=== PATIENT | male | born 1940 ===

== ENCOUNTER 2022-02-10 21:47 | Inpatient (IN) ==
[2022-02-10] MEDS ORDERED: SILVER SULFADIAZINE 1% CREAM 25 GM TUBE TOP STA (22:15)
[2022-02-10] MEDS ORDERED: SODIUM CHLORIDE 0.9% 1,000 ML IV STA (22:16)
[2022-02-10] MEDS ORDERED: ONDANSETRON 4 MG/2 ML VIAL IV STA (22:16)
[2022-02-10] MEDS ORDERED: SILVER SULFADIAZINE 1% CREAM 25 GM TUBE TOP ONE (22:18)
[2022-02-10 23:32] LABS: Basophils % 0.1 % (0.0-0.8); Hematocrit 43.2 VOL% (42.0-52.0); Hemoglobin 15.2 GM/DL (14.0-18.0); Immature Granulocytes % 0.9 %; Immature Granulocytes Absolute 0.12 #; Lymphocytes % 7.3 % (21.2-54.2); Mean Corpuscular HGB Conc 35.2 GM/DL (32-36); Mean Corpuscular Volume 102.4 FL (87-102); Mean Platelet Volume 10.1 FL (9.6-12.0); Monocytes % 7.4 % (1.7-12.7); Neutrophils % 84.3 % (38.7-73.9); Platelet Count 137 T/CUMM (130-400); Red Blood Count 4.22 MC/CUMM (3.8-5.5); Red Cell Distribution Width 14.1 % (9.3-17.3); White Blood Count 13.9 T/CUMM (4-12)
[2022-02-10 23:46] LABS: INR 1.1; PT Patient Result 12.5 SECS (10.5-12.0)
[2022-02-11] MEDS ORDERED: SODIUM CHLORIDE 0.9% 1,000 ML IV STA (00:02)
[2022-02-11 00:05] LABS: Alanine Aminotransferase 155 U/L (16-61); Albumin 2.9 G/DL (3.4-5.0); Alkaline Phosphatase 90 U/L (45-117); Aspartate Amino Transferase 337 U/L (0-37); Blood Urea Nitrogen 30 MG/DL (7-18); CKMB % 0.6 %; Calcium 8.6 MG/DL (8.5-10.1); Carbon Dioxide 26 MMOL/L (21-32); Estimated Glom Filtration Rate 107 ML/MIN; Glucose 188 MG/DL (74-106); Potassium 3.7 MMOL/L (3.5-5.1); Sodium 143 MMOL/L (136-145); Total Protein 6.7 G/DL (6.4-8.2)
[2022-02-11 00:34] LABS: Bacteria,Urine Occasional /HPF (Few); Mucus,Urine Few /LPF (Occasional); RBC,Urine 1 /HPF (0-4)
[2022-02-11 00:35] LABS: Bilirubin,Urine Small mg/dL (Negative); Blood, Urine Large mg/dL (Negative); Glucose,Urine (UA) Negative (Negative); Ketones,Urine 15 mg/dL (Negative); Nitrite,Urine Negative (Negative); Protein,Urine 100 mg/dL (Negative); Urine Appearance Clear (Clear); Urine Color Yellow (Yellow); Urine Specific Gravity >= 1.030 (1.001-1.035); Urine pH 5.5 (4.5-8.0)
[2022-02-11] MEDS ORDERED: ACETAMINOPHEN 325 MG TABLET PO PRN (01:40)
[2022-02-11] MEDS ORDERED: SIMETHICONE CHEW 125 MG TABLET PO PRN (01:40)
[2022-02-11] MEDS ORDERED: ONDANSETRON 4 MG/2 ML VIAL IV PRN (01:40)
[2022-02-11] MEDS ORDERED: GLUCAGON 1 MG VIAL IM PRN (01:40)
[2022-02-11] MEDS ORDERED: DEXTROSE 10% 250 ML BAG IV PRN (01:53)
[2022-02-11] MEDS: SODIUM CHLORIDE 0.45% 1,000 ML IV SCH ×3 (03:30→19:10)
[2022-02-11 03:37] LABS: Basophils % 0.1 % (0.0-0.8); Eosinophils % 0.1 % (0.00-10.9); Hematocrit 38.5 VOL% (42.0-52.0); Hemoglobin 13.3 GM/DL (14.0-18.0); Immature Granulocytes % 0.7 %; Immature Granulocytes Absolute 0.09 #; Lymphocytes # 1.3 10*3/uL (1.4-4.0); Lymphocytes % 10.6 % (21.2-54.2); Mean Corpuscular HGB Conc 34.5 GM/DL (32-36); Mean Corpuscular Volume 101.9 FL (87-102); Mean Platelet Volume 10.2 FL (9.6-12.0); Monocytes % 8.1 % (1.7-12.7); Neutrophils % 80.4 % (38.7-73.9); Platelet Count 120 T/CUMM (130-400); Red Blood Count 3.78 MC/CUMM (3.8-5.5); Red Cell Distribution Width 13.9 % (9.3-17.3); White Blood Count 12.6 T/CUMM (4-12)
[2022-02-11 04:14] LABS: Albumin 2.7 G/DL (3.4-5.0); Bilirubin,Total 1.6 MG/DL (0.20-1.00); CKMB % 0.6 %; Calcium 8.5 MG/DL (8.5-10.1); High Sensitive Troponin I* 44.3 ng/L (0-78); Potassium 3.3 MMOL/L (3.5-5.1); Risk Ratio 4.87; Thyroid Stimulating Hormone 1.01 uIU/ml (0.358-3.74); Total Protein 6.5 G/DL (6.4-8.2); VLDL Cholesterol 24.8 MG/DL
[2022-02-11] MEDS ORDERED: POTASSIUM CHLORIDE RIDER 10 MEQ/100 ML PREMIX IV PRN (06:30)
[2022-02-11] MEDS ORDERED: MAGNESIUM SULF RIDER 2 GM/50 ML PREMIX IV PRN (06:30)
[2022-02-11] MEDS ORDERED: MAGNESIUM SULF RIDER 4 GM/100 ML PREMIX IV PRN (06:30)
[2022-02-11] MEDS: POTASSIUM CHLORIDE 20 MEQ TABLET PO PRN ×3 (07:19→11:48)
[2022-02-11] MEDS: INSULIN REGULAR 100 UNIT/ML SUBCUT SCH ×4 (07:20→20:15)
[2022-02-11] MEDS: ALBUTEROL 2.5 MG/3 ML NEB RESP TX SCH ×3 (07:40→20:00)
[2022-02-11] MEDS: DOCUSATE SODIUM 100 MG CAPSULE PO SCH ×2 (09:49→20:15)
[2022-02-11] MEDS: ENOXAPARIN 40 MG/0.4 ML SYRINGE SUBCUT SCH (09:49)
[2022-02-11] MEDS: PANTOPRAZOLE 40 MG TABLET PO SCH (09:50)
[2022-02-11] MEDS: ASCORBIC ACID 500 MG TABLET PO SCH (20:15)
[2022-02-12] MEDS: ALBUTEROL 2.5 MG/3 ML NEB RESP TX SCH ×4 (00:57→19:37)
[2022-02-12] MEDS: SODIUM CHLORIDE 0.45% 1,000 ML IV SCH ×3 (03:30→17:16)
[2022-02-12] MEDS ORDERED: PHENOL 1.4% THROAT SPRAY 177 ML BOTTLE PO PRN (03:40)
[2022-02-12 06:07] LABS: Basophils % 0.5 % (0.0-0.8); Eosinophils # 0.2 10*3/uL (0.0-0.87); Eosinophils % 2.3 % (0.00-10.9); Hematocrit 38.3 VOL% (42.0-52.0); Hemoglobin 13.3 GM/DL (14.0-18.0); Immature Granulocytes % 0.7 %; Immature Granulocytes Absolute 0.06 #; Lymphocytes # 1.4 10*3/uL (1.4-4.0); Lymphocytes % 17.5 % (21.2-54.2); Mean Corpuscular HGB Conc 34.7 GM/DL (32-36); Mean Corpuscular Volume 102.4 FL (87-102); Mean Platelet Volume 10.9 FL (9.6-12.0); Monocytes % 8.5 % (1.7-12.7); Neutrophils % 70.5 % (38.7-73.9); Platelet Count 126 T/CUMM (130-400); Red Blood Count 3.74 MC/CUMM (3.8-5.5); Red Cell Distribution Width 14.3 % (9.3-17.3); White Blood Count 8.2 T/CUMM (4-12)
[2022-02-12 06:38] LABS: Albumin 2.3 G/DL (3.4-5.0); Bilirubin,Total 1.2 MG/DL (0.20-1.00); CKMB % 0.7 %; Calcium 8.4 MG/DL (8.5-10.1); Osmolality,Calculated 286.3 MOS/KG (273-304); Potassium 3.5 MMOL/L (3.5-5.1); Total Protein 6.3 G/DL (6.4-8.2)
[2022-02-12] MEDS: PANTOPRAZOLE 40 MG TABLET PO SCH (08:48)
[2022-02-12] MEDS: ASCORBIC ACID 500 MG TABLET PO SCH ×2 (08:48→22:36)
[2022-02-12] MEDS: DOCUSATE SODIUM 100 MG CAPSULE PO SCH ×2 (08:48→22:43)
[2022-02-12] MEDS: ENOXAPARIN 40 MG/0.4 ML SYRINGE SUBCUT SCH (08:49)
[2022-02-12] MEDS: INSULIN REGULAR 100 UNIT/ML SUBCUT SCH ×4 (08:50→21:58)
[2022-02-12] MEDS: NON-FORMULARY MEDICATION (Omega-3 Fatty Acids-Vitamin E 1,000 mg Capsule) PO SCH (09:02)
[2022-02-12] MEDS: ZALEPLON 5 MG CAPSULE PO PRN (22:36)
[2022-02-13] MEDS: ALBUTEROL 2.5 MG/3 ML NEB RESP TX SCH ×4 (00:05→19:30)
[2022-02-13] MEDS: SODIUM CHLORIDE 0.45% 1,000 ML IV SCH ×3 (04:24→22:22)
[2022-02-13 05:40] LABS: Basophils % 0.5 % (0.0-0.8); Eosinophils # 0.4 10*3/uL (0.0-0.87); Eosinophils % 5.3 % (0.00-10.9); Hematocrit 37.9 VOL% (42.0-52.0); Hemoglobin 12.8 GM/DL (14.0-18.0); Immature Granulocytes % 1.3 %; Lymphocytes # 1.4 10*3/uL (1.4-4.0); Lymphocytes % 18.7 % (21.2-54.2); Mean Corpuscular HGB Conc 33.8 GM/DL (32-36); Mean Corpuscular Volume 102.7 FL (87-102); Monocytes % 9.7 % (1.7-12.7); Neutrophils % 64.5 % (38.7-73.9); Platelet Count 128 T/CUMM (130-400); Red Blood Count 3.69 MC/CUMM (3.8-5.5); Red Cell Distribution Width 14.2 % (9.3-17.3); White Blood Count 7.5 T/CUMM (4-12)
[2022-02-13 06:13] LABS: Albumin 2.2 G/DL (3.4-5.0); CKMB % 0.6 %; Calcium 8.4 MG/DL (8.5-10.1); Osmolality,Calculated 283.4 MOS/KG (273-304); Potassium 3.8 MMOL/L (3.5-5.1); Total Protein 6.1 G/DL (6.4-8.2)
[2022-02-13] MEDS: INSULIN REGULAR 100 UNIT/ML SUBCUT SCH ×4 (08:21→20:36)
[2022-02-13] MEDS: ASCORBIC ACID 500 MG TABLET PO SCH ×2 (09:33→20:33)
[2022-02-13] MEDS: DOCUSATE SODIUM 100 MG CAPSULE PO SCH ×2 (09:33→20:33)
[2022-02-13] MEDS: PANTOPRAZOLE 40 MG TABLET PO SCH (09:33)
[2022-02-13] MEDS: ENOXAPARIN 40 MG/0.4 ML SYRINGE SUBCUT SCH (09:34)
[2022-02-13] MEDS: NON-FORMULARY MEDICATION (Omega-3 Fatty Acids-Vitamin E 1,000 mg Capsule) PO SCH (09:53)
[2022-02-13] MEDS: ZALEPLON 5 MG CAPSULE PO PRN (20:34)
[2022-02-14] MEDS: ALBUTEROL 2.5 MG/3 ML NEB RESP TX SCH ×4 (01:11→19:11)
[2022-02-14] MEDS: SODIUM CHLORIDE 0.45% 1,000 ML IV SCH ×2 (03:21→12:44)
[2022-02-14 05:23] LABS: Basophils % 0.6 % (0.0-0.8); Eosinophils # 0.5 10*3/uL (0.0-0.87); Eosinophils % 6.6 % (0.00-10.9); Hematocrit 38.7 VOL% (42.0-52.0); Immature Granulocytes % 2.1 %; Immature Granulocytes Absolute 0.15 #; Lymphocytes # 1.4 10*3/uL (1.4-4.0); Lymphocytes % 20.3 % (21.2-54.2); Mean Corpuscular HGB Conc 33.6 GM/DL (32-36); Mean Corpuscular Volume 103.5 FL (87-102); Mean Platelet Volume 10.2 FL (9.6-12.0); Monocytes % 9.7 % (1.7-12.7); Neutrophils % 60.7 % (38.7-73.9); Platelet Count 131 T/CUMM (130-400); Red Blood Count 3.74 MC/CUMM (3.8-5.5); Red Cell Distribution Width 14.3 % (9.3-17.3)
[2022-02-14 05:47] LABS: Bilirubin,Total 1.2 MG/DL (0.20-1.00); CKMB % 1.1 %; Calcium 8.2 MG/DL (8.5-10.1); Osmolality,Calculated 277.5 MOS/KG (273-304); Potassium 4.3 MMOL/L (3.5-5.1); Total Protein 5.9 G/DL (6.4-8.2)
[2022-02-14] MEDS: INSULIN REGULAR 100 UNIT/ML SUBCUT SCH ×4 (08:03→21:00)
[2022-02-14] MEDS: PANTOPRAZOLE 40 MG TABLET PO SCH (09:04)
[2022-02-14] MEDS: ASCORBIC ACID 500 MG TABLET PO SCH ×2 (09:05→20:59)
[2022-02-14] MEDS: ENOXAPARIN 40 MG/0.4 ML SYRINGE SUBCUT SCH (09:05)
[2022-02-14] MEDS: NON-FORMULARY MEDICATION (Omega-3 Fatty Acids-Vitamin E 1,000 mg Capsule) PO SCH (09:05)
[2022-02-14] MEDS: DOCUSATE SODIUM 100 MG CAPSULE PO SCH ×2 (09:05→20:59)
[2022-02-15] MEDS: ALBUTEROL 2.5 MG/3 ML NEB RESP TX SCH ×4 (00:24→20:23)
[2022-02-15] MEDS: SODIUM CHLORIDE 0.45% 1,000 ML IV SCH ×2 (01:56→03:44)
[2022-02-15 05:14] LABS: Basophils % 0.5 % (0.0-0.8); Eosinophils # 0.4 10*3/uL (0.0-0.87); Eosinophils % 6.2 % (0.00-10.9); Hematocrit 37.9 VOL% (42.0-52.0); Hemoglobin 12.8 GM/DL (14.0-18.0); Immature Granulocytes % 1.8 %; Immature Granulocytes Absolute 0.11 #; Lymphocytes # 1.1 10*3/uL (1.4-4.0); Lymphocytes % 17.7 % (21.2-54.2); Mean Corpuscular HGB Conc 33.8 GM/DL (32-36); Mean Corpuscular Volume 103.8 FL (87-102); Mean Platelet Volume 10.1 FL (9.6-12.0); Monocytes % 11.2 % (1.7-12.7); Neutrophils % 62.6 % (38.7-73.9); Platelet Count 136 T/CUMM (130-400); Red Blood Count 3.65 MC/CUMM (3.8-5.5); Red Cell Distribution Width 13.9 % (9.3-17.3); White Blood Count 6.3 T/CUMM (4-12)
[2022-02-15 05:34] LABS: Albumin 2.1 G/DL (3.4-5.0); Bilirubin,Total 0.8 MG/DL (0.20-1.00); CKMB % 1.6 %; Calcium 8.4 MG/DL (8.5-10.1); Osmolality,Calculated 276.7 MOS/KG (273-304); Potassium 3.6 MMOL/L (3.5-5.1); Total Protein 6.2 G/DL (6.4-8.2)
[2022-02-15] MEDS: INSULIN REGULAR 100 UNIT/ML SUBCUT SCH ×4 (08:33→21:14)
[2022-02-15] MEDS: DOCUSATE SODIUM 100 MG CAPSULE PO SCH ×2 (10:46→22:49)
[2022-02-15] MEDS: NON-FORMULARY MEDICATION (Omega-3 Fatty Acids-Vitamin E 1,000 mg Capsule) PO SCH (10:47)
[2022-02-15] MEDS: ASCORBIC ACID 500 MG TABLET PO SCH ×2 (10:47→21:13)
[2022-02-15] MEDS: ENOXAPARIN 40 MG/0.4 ML SYRINGE SUBCUT SCH (10:47)
[2022-02-15] MEDS: PANTOPRAZOLE 40 MG TABLET PO SCH (10:47)
[2022-02-15] MEDS ORDERED: DOXYCYCLINE HYCLATE 100 MG CAPSULE PO SCH (21:00)
[2022-02-15] MEDS: ZALEPLON 5 MG CAPSULE PO PRN (21:13)
[2022-02-16] MEDS: ALBUTEROL 2.5 MG/3 ML NEB RESP TX SCH ×4 (01:06→19:15)
[2022-02-16 05:07] LABS: Basophils % 0.6 % (0.0-0.8); Eosinophils # 0.4 10*3/uL (0.0-0.87); Eosinophils % 6.5 % (0.00-10.9); Hematocrit 39.7 VOL% (42.0-52.0); Hemoglobin 13.5 GM/DL (14.0-18.0); Immature Granulocytes Absolute 0.07 #; Lymphocytes # 1.4 10*3/uL (1.4-4.0); Lymphocytes % 20.4 % (21.2-54.2); Mean Corpuscular Volume 102.3 FL (87-102); Mean Platelet Volume 9.6 FL (9.6-12.0); Monocytes % 10.8 % (1.7-12.7); Neutrophils % 60.7 % (38.7-73.9); Platelet Count 145 T/CUMM (130-400); Red Blood Count 3.88 MC/CUMM (3.8-5.5); Red Cell Distribution Width 13.9 % (9.3-17.3); White Blood Count 6.8 T/CUMM (4-12)
[2022-02-16 05:40] LABS: Albumin 2.2 G/DL (3.4-5.0); CKMB % 1.9 %; Calcium 8.6 MG/DL (8.5-10.1); Osmolality,Calculated 278.4 MOS/KG (273-304); Potassium 4.1 MMOL/L (3.5-5.1); Total Protein 6.2 G/DL (6.4-8.2)
[2022-02-16] MEDS: INSULIN REGULAR 100 UNIT/ML SUBCUT SCH ×4 (08:07→22:20)
[2022-02-16] MEDS: NON-FORMULARY MEDICATION (Omega-3 Fatty Acids-Vitamin E 1,000 mg Capsule) PO SCH (09:04)
[2022-02-16] MEDS: DOXYCYCLINE HYCLATE 100 MG CAPSULE PO SCH ×2 (09:14→22:19)
[2022-02-16] MEDS: ENOXAPARIN 40 MG/0.4 ML SYRINGE SUBCUT SCH (09:14)
[2022-02-16] MEDS: DOCUSATE SODIUM 100 MG CAPSULE PO SCH ×2 (09:14→22:19)
[2022-02-16] MEDS: PANTOPRAZOLE 40 MG TABLET PO SCH (09:14)
[2022-02-16] MEDS: ASCORBIC ACID 500 MG TABLET PO SCH ×2 (09:14→22:19)
[2022-02-16] MEDS: POLYETHYLENE GLYCOL POWDER 17 GM PACK PO SCH (09:14)
[2022-02-16] MEDS ORDERED: TUBERCULIN SKIN TEST 0.1 ML SYRINGE INTRADERM ONE (18:00)
[2022-02-16] MEDS: ZALEPLON 5 MG CAPSULE PO PRN (22:19)
[2022-02-17] MEDS: ALBUTEROL 2.5 MG/3 ML NEB RESP TX SCH ×4 (00:09→19:46)
[2022-02-17 05:16] LABS: Basophils % 0.5 % (0.0-0.8); Eosinophils # 0.4 10*3/uL (0.0-0.87); Eosinophils % 6.9 % (0.00-10.9); Hematocrit 38.1 VOL% (42.0-52.0); Hemoglobin 13.1 GM/DL (14.0-18.0); Immature Granulocytes % 0.7 %; Immature Granulocytes Absolute 0.04 #; Lymphocytes # 1.1 10*3/uL (1.4-4.0); Lymphocytes % 20.5 % (21.2-54.2); Mean Corpuscular HGB Conc 34.4 GM/DL (32-36); Mean Corpuscular Volume 102.4 FL (87-102); Mean Platelet Volume 9.6 FL (9.6-12.0); Monocytes % 10.4 % (1.7-12.7); Platelet Count 142 T/CUMM (130-400); Red Blood Count 3.72 MC/CUMM (3.8-5.5); Red Cell Distribution Width 13.8 % (9.3-17.3); White Blood Count 5.5 T/CUMM (4-12)
[2022-02-17 05:38] LABS: Albumin 2.1 G/DL (3.4-5.0); Bilirubin,Total 0.8 MG/DL (0.20-1.00); CKMB % 2.5 %; Calcium 8.5 MG/DL (8.5-10.1); Osmolality,Calculated 276.7 MOS/KG (273-304); Potassium 3.4 MMOL/L (3.5-5.1); Total Protein 6.2 G/DL (6.4-8.2)
[2022-02-17] MEDS: NON-FORMULARY MEDICATION (Omega-3 Fatty Acids-Vitamin E 1,000 mg Capsule) PO SCH (09:12)
[2022-02-17] MEDS: DOCUSATE SODIUM 100 MG CAPSULE PO SCH ×2 (09:30→22:12)
[2022-02-17] MEDS: PANTOPRAZOLE 40 MG TABLET PO SCH (09:30)
[2022-02-17] MEDS: POTASSIUM CHLORIDE 20 MEQ TABLET PO PRN (09:30)
[2022-02-17] MEDS: ASCORBIC ACID 500 MG TABLET PO SCH ×2 (09:30→22:12)
[2022-02-17] MEDS: DOXYCYCLINE HYCLATE 100 MG CAPSULE PO SCH ×2 (09:30→22:12)
[2022-02-17] MEDS: ENOXAPARIN 40 MG/0.4 ML SYRINGE SUBCUT SCH (09:31)
[2022-02-17] MEDS: INSULIN REGULAR 100 UNIT/ML SUBCUT SCH ×4 (09:31→22:14)
[2022-02-17] MEDS: POLYETHYLENE GLYCOL POWDER 17 GM PACK PO SCH (09:31)
[2022-02-17] MEDS ORDERED: TUBERCULIN SKIN TEST 0.1 ML SYRINGE INTRADERM ONE (11:30)
[2022-02-17] MEDS: ZALEPLON 5 MG CAPSULE PO PRN (22:13)
[2022-02-18] MEDS: ALBUTEROL 2.5 MG/3 ML NEB RESP TX SCH ×4 (00:26→19:27)
[2022-02-18] MEDS: ASCORBIC ACID 500 MG TABLET PO SCH (08:50)
[2022-02-18] MEDS: PANTOPRAZOLE 40 MG TABLET PO SCH (08:50)
[2022-02-18] MEDS: ENOXAPARIN 40 MG/0.4 ML SYRINGE SUBCUT SCH (08:50)
[2022-02-18] MEDS: DOCUSATE SODIUM 100 MG CAPSULE PO SCH (08:50)
[2022-02-18] MEDS: POLYETHYLENE GLYCOL POWDER 17 GM PACK PO SCH (08:50)
[2022-02-18] MEDS ORDERED: ANTI ITCH TOP PRN (09:06)
[2022-02-18] MEDS ORDERED: NYSTATIN CREAM 15 GM TUBE TOP SCH (11:00)
[2022-02-18] MEDS: INSULIN REGULAR 100 UNIT/ML SUBCUT SCH ×3 (17:10→17:39)
[2022-02-18] MEDS: NON-FORMULARY MEDICATION (Omega-3 Fatty Acids-Vitamin E 1,000 mg Capsule) PO SCH (17:40)
[2022-02-18 22:26] VITALS: BP 137/54
[2022-02-19] MEDS ORDERED: OMEGA 3 ACID ETHYL ESTERS 1 GM CAPSULE PO SCH (09:00)
== END 2022-02-18 20:32 | disposition swing bed (61) | DRG 565 ==
LOC: N.ED 21:47 → N.EDINP 02-11 02:45 → SUATTDRO 02-11 02:45 → N.EDINP 02-11 15:01 → N.TELEN 02-11 15:08
PROVIDERS: ADMIT Family Medicine; ATTEND Internal Medicine

== ENCOUNTER 2022-08-30 13:21 | Inpatient (IN) ==
[2022-08-30 15:11] LABS: Basophils % 0.4 % (0.0-0.8); Eosinophils # 0.1 10*3/uL (0.0-0.87); Eosinophils % 2.8 % (0.00-10.9); Hemoglobin 13.1 GM/DL (14.0-18.0); Immature Granulocytes % 0.4 %; Immature Granulocytes Absolute 0.02 #; Lymphocytes % 19.2 % (21.2-54.2); Mean Corpuscular HGB Conc 33.6 GM/DL (32-36); Mean Corpuscular Volume 98.7 FL (87-102); Mean Platelet Volume 9.1 FL (9.6-12.0); Monocytes # 0.6 10*3/uL (0.11-0.8); Monocytes % 12.3 % (1.7-12.7); Neutrophils % 64.9 % (38.7-73.9); Platelet Count 190 T/CUMM (130-400); Red Blood Count 3.95 MC/CUMM (3.8-5.5); Red Cell Distribution Width 15.7 % (9.3-17.3)
[2022-08-30 15:29] LABS: Albumin 2.6 G/DL (3.4-5.0); Bilirubin,Total 0.9 MG/DL (0.20-1.00); Calcium 8.6 MG/DL (8.5-10.1); Osmolality,Calculated 277.7 MOS/KG (273-304); Potassium 4.2 MMOL/L (3.5-5.1); Total Protein 7.6 G/DL (6.4-8.2)
[2022-08-30] MEDS ORDERED: ONDANSETRON 4 MG/2 ML VIAL IV PRN (16:49)
[2022-08-30 17:41] LABS: INR 1.1; PT Patient Result 11.8 SECS (10.1-12.1); Partial Thromboplastin Time 45.8 SECS (23.7-32.9)
[2022-08-30] MEDS ORDERED: HEPARIN DRIP 25,000 UNITS/500 ML PREMIX IV SCH (18:00)
[2022-08-30] MEDS ORDERED: ENOXAPARIN 40 MG/0.4 ML SYRINGE SUBCUT SCH (18:00)
[2022-08-30] MEDS: LACTULOSE 20 GM/30 ML UDCUP PO SCH ×2 (19:12→22:49)
[2022-08-30] MEDS: FUROSEMIDE 40 MG/4 ML VIAL IV SCH (19:13)
[2022-08-30 19:53] LABS: INR 1.1; PT Patient Result 12.4 SECS (10.1-12.1); Partial Thromboplastin Time 47.6 SECS (23.7-32.9)
[2022-08-30] MEDS ORDERED: GABAPENTIN 100 MG CAPSULE PO SCH (21:00)
[2022-08-30] MEDS: MELATONIN 3 MG TABLET PO PRN (22:49)
[2022-08-30] MEDS: GABAPENTIN 300 MG CAPSULE PO SCH (22:49)
[2022-08-30] MEDS: traMADol 50 MG TABLET PO PRN (22:49)
[2022-08-31 05:24] LABS: Basophils % 0.4 % (0.0-0.8); Eosinophils # 0.2 10*3/uL (0.0-0.87); Eosinophils % 4.2 % (0.00-10.9); Hematocrit 33.6 VOL% (42.0-52.0); Hemoglobin 11.4 GM/DL (14.0-18.0); Immature Granulocytes % 0.2 %; Immature Granulocytes Absolute 0.01 #; Lymphocytes # 1.1 10*3/uL (1.4-4.0); Lymphocytes % 24.1 % (21.2-54.2); Mean Corpuscular HGB Conc 33.9 GM/DL (32-36); Mean Corpuscular Volume 97.7 FL (87-102); Mean Platelet Volume 9.3 FL (9.6-12.0); Monocytes # 0.5 10*3/uL (0.11-0.8); Monocytes % 11.6 % (1.7-12.7); Neutrophils % 59.5 % (38.7-73.9); Platelet Count 154 T/CUMM (130-400); Red Blood Count 3.44 MC/CUMM (3.8-5.5); Red Cell Distribution Width 15.6 % (9.3-17.3); White Blood Count 4.5 T/CUMM (4-12)
[2022-08-31 05:47] LABS: Albumin 2.1 G/DL (3.4-5.0); Bilirubin,Total 0.8 MG/DL (0.20-1.00); Calcium 8.6 MG/DL (8.5-10.1); Osmolality,Calculated 273.8 MOS/KG (273-304); Total Protein 6.2 G/DL (6.4-8.2)
[2022-08-31] MEDS: LACTULOSE 20 GM/30 ML UDCUP PO SCH ×4 (05:57→22:28)
[2022-08-31] MEDS ORDERED: CHOLECALCIFEROL 1,000 UNIT TABLET PO SCH (09:00)
[2022-08-31] MEDS ORDERED: FUROSEMIDE 40 MG TABLET PO SCH (09:00)
[2022-08-31] MEDS: FERROUS SULFATE 325 MG TABLET PO SCH ×2 (09:24→20:34)
[2022-08-31] MEDS: PANTOPRAZOLE 40 MG TABLET PO SCH (09:24)
[2022-08-31] MEDS: SPIRONOLACTONE 100 MG TABLET PO SCH (09:24)
[2022-08-31] MEDS: FUROSEMIDE 40 MG/4 ML VIAL IV SCH ×2 (09:26→15:59)
[2022-08-31] MEDS: AMOXICILLIN/CLAV 875 MG TABLET PO SCH (20:34)
[2022-08-31] MEDS: traMADol 50 MG TABLET PO PRN (20:34)
[2022-08-31] MEDS: GABAPENTIN 300 MG CAPSULE PO SCH (20:34)
[2022-08-31] MEDS: MELATONIN 3 MG TABLET PO PRN (20:34)
[2022-09-01 05:03] LABS: Basophils % 0.4 % (0.0-0.8); Eosinophils # 0.2 10*3/uL (0.0-0.87); Eosinophils % 4.7 % (0.00-10.9); Hematocrit 37.3 VOL% (42.0-52.0); Hemoglobin 12.7 GM/DL (14.0-18.0); Immature Granulocytes % 0.4 %; Immature Granulocytes Absolute 0.02 #; Lymphocytes # 1.1 10*3/uL (1.4-4.0); Lymphocytes % 22.9 % (21.2-54.2); Mean Corpuscular Volume 98.7 FL (87-102); Mean Platelet Volume 9.3 FL (9.6-12.0); Monocytes # 0.5 10*3/uL (0.11-0.8); Monocytes % 11.1 % (1.7-12.7); Neutrophils % 60.5 % (38.7-73.9); Platelet Count 163 T/CUMM (130-400); Red Blood Count 3.78 MC/CUMM (3.8-5.5); Red Cell Distribution Width 15.5 % (9.3-17.3); White Blood Count 4.7 T/CUMM (4-12)
[2022-09-01 05:27] LABS: Albumin 2.3 G/DL (3.4-5.0); Bilirubin,Total 1.3 MG/DL (0.20-1.00); Calcium 8.8 MG/DL (8.5-10.1); Potassium 3.7 MMOL/L (3.5-5.1); Total Protein 6.8 G/DL (6.4-8.2)
[2022-09-01] MEDS: LACTULOSE 20 GM/30 ML UDCUP PO SCH ×4 (05:55→23:22)
[2022-09-01] MEDS: FUROSEMIDE 40 MG/4 ML VIAL IV SCH ×2 (08:58→17:13)
[2022-09-01] MEDS: AMOXICILLIN/CLAV 875 MG TABLET PO SCH ×2 (09:01→20:46)
[2022-09-01] MEDS: CYANOCOBALAMIN 500 MCG TABLET PO SCH (09:02)
[2022-09-01] MEDS: FERROUS SULFATE 325 MG TABLET PO SCH ×2 (09:02→20:46)
[2022-09-01] MEDS: SPIRONOLACTONE 100 MG TABLET PO SCH (09:02)
[2022-09-01] MEDS: THIAMINE 100 MG TABLET PO SCH (09:02)
[2022-09-01] MEDS: CHOLECALCIFEROL 1,000 UNIT TABLET PO SCH (09:02)
[2022-09-01] MEDS: PANTOPRAZOLE 40 MG TABLET PO SCH (09:02)
[2022-09-01] MEDS: ASCORBIC ACID 500 MG TABLET PO SCH (09:02)
[2022-09-01] MEDS: MELATONIN 3 MG TABLET PO PRN (20:46)
[2022-09-01] MEDS: GABAPENTIN 300 MG CAPSULE PO SCH (20:46)
[2022-09-01] MEDS: traMADol 50 MG TABLET PO PRN (20:46)
[2022-09-02 05:20] LABS: Basophils % 0.6 % (0.0-0.8); Eosinophils # 0.2 10*3/uL (0.0-0.87); Hematocrit 34.6 VOL% (42.0-52.0); Hemoglobin 11.8 GM/DL (14.0-18.0); Immature Granulocytes % 0.4 %; Immature Granulocytes Absolute 0.02 #; Lymphocytes % 21.3 % (21.2-54.2); Mean Corpuscular HGB Conc 34.1 GM/DL (32-36); Mean Corpuscular Volume 98.9 FL (87-102); Mean Platelet Volume 9.1 FL (9.6-12.0); Monocytes # 0.6 10*3/uL (0.11-0.8); Monocytes % 12.7 % (1.7-12.7); Platelet Count 163 T/CUMM (130-400); Red Cell Distribution Width 15.4 % (9.3-17.3); White Blood Count 4.7 T/CUMM (4-12)
[2022-09-02 05:47] LABS: Calcium 8.5 MG/DL (8.5-10.1); Potassium 3.9 MMOL/L (3.5-5.1)
[2022-09-02] MEDS: LACTULOSE 20 GM/30 ML UDCUP PO SCH ×5 (06:24→23:45)
[2022-09-02] MEDS: FERROUS SULFATE 325 MG TABLET PO SCH ×3 (07:07→21:15)
[2022-09-02] MEDS: THIAMINE 100 MG TABLET PO SCH ×2 (07:08→10:32)
[2022-09-02] MEDS: SPIRONOLACTONE 100 MG TABLET PO SCH (10:32)
[2022-09-02] MEDS: AMOXICILLIN/CLAV 875 MG TABLET PO SCH ×2 (10:32→21:15)
[2022-09-02] MEDS: FUROSEMIDE 40 MG/4 ML VIAL IV SCH (10:32)
[2022-09-02] MEDS: CYANOCOBALAMIN 500 MCG TABLET PO SCH (10:33)
[2022-09-02] MEDS: ASCORBIC ACID 500 MG TABLET PO SCH (10:33)
[2022-09-02] MEDS: PANTOPRAZOLE 40 MG TABLET PO SCH (10:33)
[2022-09-02] MEDS: CHOLECALCIFEROL 1,000 UNIT TABLET PO SCH (10:33)
[2022-09-02] MEDS: FUROSEMIDE 40 MG TABLET PO SCH (16:27)
[2022-09-02] MEDS: MELATONIN 3 MG TABLET PO PRN (21:15)
[2022-09-02] MEDS: GABAPENTIN 300 MG CAPSULE PO SCH (21:15)
[2022-09-03 05:15] LABS: Basophils % 0.4 % (0.0-0.8); Eosinophils # 0.1 10*3/uL (0.0-0.87); Eosinophils % 3.1 % (0.00-10.9); Hematocrit 36.2 VOL% (42.0-52.0); Hemoglobin 12.1 GM/DL (14.0-18.0); Immature Granulocytes % 0.7 %; Immature Granulocytes Absolute 0.03 #; Lymphocytes # 0.9 10*3/uL (1.4-4.0); Lymphocytes % 19.8 % (21.2-54.2); Mean Corpuscular HGB Conc 33.4 GM/DL (32-36); Mean Corpuscular Volume 97.3 FL (87-102); Mean Platelet Volume 9.4 FL (9.6-12.0); Monocytes # 0.6 10*3/uL (0.11-0.8); Monocytes % 13.3 % (1.7-12.7); Neutrophils % 62.7 % (38.7-73.9); Platelet Count 172 T/CUMM (130-400); Red Blood Count 3.72 MC/CUMM (3.8-5.5); Red Cell Distribution Width 15.1 % (9.3-17.3); White Blood Count 4.5 T/CUMM (4-12)
[2022-09-03 05:34] LABS: Calcium 8.6 MG/DL (8.5-10.1); Osmolality,Calculated 272.8 MOS/KG (273-304); Potassium 3.8 MMOL/L (3.5-5.1)
[2022-09-03] MEDS: LACTULOSE 20 GM/30 ML UDCUP PO SCH (05:50)
[2022-09-03] MEDS: AMOXICILLIN/CLAV 875 MG TABLET PO SCH (12:07)
[2022-09-03] MEDS: CHOLECALCIFEROL 1,000 UNIT TABLET PO SCH (12:07)
[2022-09-03] MEDS: CYANOCOBALAMIN 500 MCG TABLET PO SCH (12:07)
[2022-09-03] MEDS: ASCORBIC ACID 500 MG TABLET PO SCH (12:08)
[2022-09-03] MEDS: SPIRONOLACTONE 100 MG TABLET PO SCH (12:08)
[2022-09-03] MEDS: FUROSEMIDE 40 MG TABLET PO SCH (12:08)
[2022-09-03] MEDS: PANTOPRAZOLE 40 MG TABLET PO SCH (12:09)
[2022-09-03] MEDS ORDERED: ALBUMIN 25% 12.5 GM/50 ML VIAL IV ONE (15:30)
[2022-09-03 17:07] VITALS: BP 120/57
== END 2022-09-03 14:35 | disposition home health service (06) | DRG 433 ==
LOC: N.ED 13:21 → N.EDINP 16:49 → N.5E 18:10
PROVIDERS: ADMIT Internal Medicine; ATTEND Internal Medicine